=== PATIENT | female | born 1945 | race Caucasian/White ===

== ENCOUNTER 2022-07-25 15:43 | Emergency (ER) | payer MEDICARE, BC, SELFPAY ==
[2022-07-25 15:46] VITALS: BP 173/75; PULSE 112; RESP 17; TEMP 36.4; O2SAT 91; BMI 25.0
--- NOTE | 2022-07-25 15:56 | ED_ITS ---
HPI - Animal Bite General: Chief Complaint: Animal Bite Stated Complaint: dog bite Time Seen by Provider: 07/25/22 15:54 Source: patient Mode of arrival: ambulatory Limitations: no limitations History of Present Illness: Patient is a 77-year-old female presents to ED today for evaluation and treatment of a dog bite to her right index finger. She states she was bitten earlier today by her own dog who has been sickly recently. States she scared the dog and it bit her. She states dog is not up-to-date on his rabies shots. She states over the past 2 weeks or so he has been very lethargic, has swollen glands to his neck, and overall just is not acting appropriately. He is an indoor/outdoor dog. Tetanus is not up-to-date. complaint: animal bite Onset (ago): hour(s) Animal: dog Description of animal: appeared ill Mechanism: bite Associated symptoms: Reports no associated symptoms; Deny chills, fever(s) or headache(s) Related Data: Patient tetanus UTD: No Review of Systems Const: Denies: fever(s), chills, body aches, fatigue or malaise Card: Denies: chest pain Resp: Denies: dyspnea GI: Denies: abdominal pain, nausea, vomiting or diarrhea Musc: Reports: extremity pain (small dog bite to finger) Neuro: Denies: headache(s), numbness in extremities, weakness in extremities or sensory changes [facility] ED PFSH: Medical History Fever blister Tick bite of abdominal wall Family History Grandmother Stroke Mother Stroke Father Cancer Grandfather CAD (coronary artery disease) Brother Cancer Other Diabetes Lupus Social History Smoking and tobacco status: current every day smoker cigarettes Packs smoked per day: 0.75 Second hand smoke exposure: Yes Alcohol intake: never Substance/Drug Use: never Marital status: Number of children: 1 Number of grandchildren: 5 Current occupational status: retired Physical Exam Const: COMMON NORMALS: no acute distress, average body habitus, patient oriented x3, no limitations, alert and well nourished Resp: COMMON NORMALS: normal respiratory effort and clear to auscultation bilaterally AUSCULTATION: clear to auscultation bilaterally Cardio: COMMON NORMALS: regular rate and regular rhythm RATE: regular rate RHYTHM: regular rhythm Extremity: COMMON NORMALS: full ROM and capillary refill normal GENERAL: Yes normal exam except as noted RIGHT UPPER EXTREMITY: Yes hand & digits (small superficial dog bite to R mid index finger; no swelling/redness) Right hand and digits: Yes ROM exam (normal), Yes neurovascular exam (normal) and Yes tendon exam (normal) Neuro: COMMON NORMALS: patient oriented x3, moves all extremities, no focal motor deficits and no sensory deficits noted SENSORIUM/ORIENTATION: Yes alert Course Vital Signs: Vital signs: Vital Signs Temperature 97.5 F L 07/25/22 15:46 Pulse Rate 100 07/25/22 17:03 Respiratory Rate 16 07/25/22 17:03 Blood Pressure 169/81 07/25/22 16:05 Pulse Oximetry 99 07/25/22 17:03 Oxygen Delivery Me thod Room Air 07/25/22 16:05 MDM - Animal Bite Medical Decision Making We will start rabies PEP as dog appeared ill and is not up-to-date on rabies shots. Tetanus was updated. She will be placed on oral antibiotics. Return to ED precautions given. Discharge Plan Discharge Patient Disposition: Home Clinical Impression: Dog bite Qualifiers: Encounter type: initial encounter Qualified Code(s): W54.0XXA - Bitten by dog, initial encounter Condition: Stable Prescriptions: New amoxicillin-pot clavulanate 875-125 mg tablet 1 tab PO BID Qty: 14 0RF Discontinued amoxicillin 875 mg tablet 875 mg PO BID doxycycline hyclate 100 mg tablet 100 mg PO BID Qty: 14 0RF No Action multivitamin Tablet 1 tab PO DAILY Discharge Orders: Discharge ED (Routine); Ordered 07/25/22 Ordered By: Shirley Kraus Referrals: Yobany Cooper MD [Primary Care Provider] - Patient Instructions: Rabies Vaccine (By injection), Rabies Immune Globulin (By injection), Animal Bite (ED) Activity Restrictions/Additional Instructions: Start your antibiotics immediately. Monitor wound for signs of infection such as redness, swelling, purulent drainage, streaking up your hand or arm, or fevers. Please seek medical reevaluation of these occur. You should have been given a schedule for the remainder of your rabies immunizations. Recommend taking your dog to the vet for further evaluation/testing/treatment. Coding Level of Care Code ED Systems Security Consultant for Roosevelt Mcgarry
[2022-07-25 16:05] VITALS: BP 169/81; PULSE 110; RESP 16; O2SAT 98
[2022-07-25] MEDS: tetanus-dipt-pertussis 0.5 mL SDV IM (16:51)
[2022-07-25] MEDS: rabies vaccine 2.5 unit SDV IM (16:53)
[2022-07-25 17:03] VITALS: PULSE 100; RESP 16; O2SAT 99
== END 2022-07-25 17:04 | disposition home or self-care (01) ==
PROVIDERS: Emergency Provider Physician Assistant; PCP Family Medicine Adult Medicine
DX: S61.250A Open bite of right index finger without damage to nail, initial encounter (principal); W54.0XXA Bitten by dog, initial encounter; Z29.14 Encounter for prophylactic rabies immune globulin; Z20.3 Contact with and (suspected) exposure to rabies; Z23 Encounter for immunization; F17.210 Nicotine dependence, cigarettes, uncomplicated
CPT/HCPCS: 90375; 90471; 90675; 90715; 99283

== ENCOUNTER 2022-07-28 09:41 | Emergency (ER) | payer MEDICARE, BC, SELFPAY ==
[2022-07-28 10:31] VITALS: BP 123/89; PULSE 87; RESP 16; TEMP 36.6; O2SAT 93; BMI 25.0
[2022-07-28] MEDS: rabies vaccine 2.5 unit SDV IM (10:52)
--- NOTE | 2022-07-28 10:57 | W.ED.ANIMALB ---
HPI - Animal Bite General: Chief Complaint: Animal Bite Stated Complaint: third day needs rabies shot Time Seen by Provider: 07/28/22 10:35 History of Present Illness: Patient is a 77-year-old female comes to the ED to get second rabies shot. Patient was seen here back on July 25 initially for dog bite on right hand and she received the rabies immunoglobulin and rabies vaccine shot then. She denies any complications from previous rabies Ig and vaccine dose. She states that her dog bite on right hand is healing well. She has no other complaints Associated symptoms: Deny chills, fever(s) or headache(s) Review of Systems Const: Denies: fever(s), chills or fatigue Eyes: Denies: change in vision or eye discomfort ENMT: Denies: throat pain, odynophagia, nasal discharge or nasal congestion Card: Denies: chest pain, palpitations, edema, swelling of feet/ankles, dyspnea on exertion or orthopnea Resp: Denies: dyspnea, productive cough or non-productive cough GI: Denies: abdominal pain, nausea, vomiting, diarrhea, constipation or hematochezia : Denies: flank pain, dysuria or hematuria Musc: Denies: neck pain, back pain or extremity swelling Skin/Breast: Reports: new lesions (Dog bite on right hand healing well); Denies: rash Neuro: Denies: headache(s), numbness in extremities or weakness in extremities PFSH ED PFSH: Medical History Fever blister Tick bite of abdominal wall Family History Grandmother Stroke Mother Stroke Father Cancer Grandfather CAD (coronary artery disease) Brother Cancer Other Diabetes Lupus Social History Smoking and tobacco status: current every day smoker cigarettes Packs smoked per day: 0.75 Second hand smoke exposure: Yes Alcohol intake: never Substance/Drug Use: never Marital status: Number of children: 1 Number of grandchildren: 5 Current occupational status: retired Physical Exam Const: COMMON NORMALS: patient oriented x3 HENMT: COMMON NORMALS: normocephalic HEAD & SCALP: normocephalic MOUTH: Normal oral and palatal mucosa present THROAT: posterior oropharynx normal and uvula midline Neck/C-Spine: COMMON NORMALS: supple GENERAL: Yes normal visual inspection Resp: COMMON NORMALS: normal respiratory effort, No retractions, No use of accessory muscles and clear to auscultation bilaterally AUSCULTATION: clear to auscultation bilaterally Cardio: COMMON NORMALS: regular rate, regular rhythm, S1 normal heart sound present, S2 normal heart sound present, No gallops present (Cardio), No clicks present (Cardio), No murmurs present (Cardio) and Peripheral pulses 2+ throughout RATE: regular rate RHYTHM: regular rhythm HEART SOUNDS: S1 normal heart sound present and S2 normal heart sound present PERIPHERAL PULSES: Peripheral pulses 2+ throughout GI: COMMON NORMALS: Normal to inspection, nondistended, normoactive bowel sounds present, Soft to palpation, non-tender and no masses PALPATION: Yes Soft to palpation : COMMON NORMALS: Yes no CVA tenderness BLADDER/KIDNEY EXAM: Yes no CVA tenderness Back/Pelvis: COMMON NORMALS: no CVA tenderness Extremity: COMMON NORMALS: normal to inspection NARRATIVE EXTREMITY EXAM: Dog bite on right hand is healing well and no signs of any infection noted. Neuro: COMMON NORMALS: patient oriented x3 GAIT: Yes Normal gait present Skin: GENERAL SKIN EXAM: dry skin Course Vital Signs: Vital signs: Vital Signs Temperature 97.9 F 07/28/22 10:31 Pulse Rate 87 07/28/22 10:31 Respiratory Rate 16 07/28/22 10:31 Blood Pressure 123/89 07/28/22 10:31 Pulse Oximetry 93 07/28/22 10:31 Oxygen Delivery Me thod Room Air 07/28/22 10:31 MDM - Animal Bite Medical Decision Making Patient is a 77-year-old female comes to the ED to get second rabies shot. Patient was seen here back on July 25 initially for dog bite on right hand and she received the rabies immunoglobulin and rabies vaccine shot then. She denies any complications from previous rabies Ig and vaccine dose. She states that her dog bite on right hand is healing well. She has no other complaints. Dog bite on right hand is healing well and no signs of any infection noted. Patient was given second rabies shot here in the ED and was stable for discharge home. Told to follow-up to get her next rabies shot on August 01. Patient understood agree with plan. Discharge Plan Discharge Patient Disposition: Home Clinical Impression: Encounter for repeat administration of rabies vaccination Condition: Stable Prescriptions: No Action multivitamin Tablet 1 tab PO DAILY amoxicillin-pot clavulanate 875-125 mg tablet 1 tab PO BID Qty: 14 0RF Discharge Orders: Discharge ED (Routine); Ordered 07/28/22 Ordered By: Joe Vicente Referrals: Yobany Cooper MD [Primary Care Provider] - Discharge Diet: Regular Discharge Activity: Increase activity as tolerated Patient Instructions: Rabies Vaccine (By injection) Activity Restrictions/Additional Instructions: Return to the ED or urgent care to receive your next rabies shot on August 01. Continue taking all medications as previously prescribed. Return to the ER or your medical provider if condition worsens. Please read and understand discharge instructions. Thank you for choosing [facility] for your healthcare needs today. Please realize this is an emergency room and that we are providing you with a medical screening exam and this may not be complete and all inclusive of all the testing and or work up that you may need to determine your ailment or severity of your illness. It is very important that you follow up as instructed or that you return to the Emergency Department should you have concerns or if your condition changes or worsens in any way. Coding Level of Care Code ED Wax Pattern Assembler for Roosevelt Mcgarry
== END 2022-07-28 11:06 | disposition home or self-care (01) ==
PROVIDERS: Emergency Provider Physician Assistant; PCP Family Medicine Adult Medicine
DX: Z29.14 Encounter for prophylactic rabies immune globulin (principal); Z20.3 Contact with and (suspected) exposure to rabies; Z23 Encounter for immunization; F17.210 Nicotine dependence, cigarettes, uncomplicated
CPT/HCPCS: 90471; 90675; 99281; 99283

== ENCOUNTER 2022-08-01 09:01 | Emergency (ER) | payer MEDICARE, BC, SELFPAY ==
[2022-08-01 09:21] VITALS: BP 133/74; PULSE 91; TEMP 36.9; O2SAT 94; BMI 25.0
--- NOTE | 2022-08-01 09:25 | ED_ITS ---
HPI - General Adult General: Chief complaint: General Medical Stated complaint: Rabies, second shot Time Seen by Provider: 08/01/22 09:18 Source: patient Mode of arrival: ambulatory Limitations: no limitations History of Present Illness: 77-year-old female is here for her day 7 rabies vaccine. She is bit by dog a week ago she has no other complaints at this time denies any pain denies any worsening proving factors. Associated symptoms: Deny chest pain, headache(s) or rash Review of Systems Const: Denies: fever(s) Card: Denies: chest pain GI: Denies: abdominal pain Musc: Denies: back pain Skin/Breast: Denies: rash Neuro: Denies: headache(s) PFSH ED PFSH: Medical History Fever blister Tick bite of abdominal wall Family History Grandmother Stroke Mother Stroke Father Cancer Grandfather CAD (coronary artery disease) Brother Cancer Other Diabetes Lupus Social History Smoking and tobacco status: current every day smoker cigarettes Packs smoked per day: 0.75 Second hand smoke exposure: Yes Alcohol intake: never Substance/Drug Use: never Marital status: Number of children: 1 Number of grandchildren: 5 Current occupational status: retired Physical Exam Const: COMMON NORMALS: no acute distress and patient oriented x3 HENMT: COMMON NORMALS: atraumatic HEAD & SCALP: atraumatic Chest: COMMONS NORMALS: normal inspection of the chest Resp: COMMON NORMALS: normal respiratory effort Extremity: COMMON NORMALS: normal to inspection Neuro: COMMON NORMALS: patient oriented x3 Psych: COMMON NORMALS: mental status grossly normal Skin: COMMON NORMALS: no rashes or lesions noted GENERAL SKIN EXAM: no rashes or lesions noted Course Vital Signs: Vital signs: Vital Signs Temperature 98.4 F 08/01/22 09:21 Pulse Rate 91 08/01/22 09:21 Blood Pressure 133/74 08/01/22 09:21 Pulse Oximetry 94 08/01/22 09:21 Oxygen Delivery Me thod Room Air 08/01/22 09:21 [facility] - General Adult Medical Decision Making Patient presents here for day 7 rabies vaccine after being bit by dog she has no other medical complaints at this time we will give her rabies shot she is stable for discharge return in 1 week for the last shot. Discharge Plan Discharge Patient Disposition: Home Clinical Impression: Encounter for repeat administration of rabies vaccination Condition: Stable Prescriptions: No Action multivitamin Tablet 1 tab PO DAILY amoxicillin-pot clavulanate 875-125 mg tablet 1 tab PO BID Qty: 14 0RF Discharge Orders: Discharge ED (Routine); Ordered 08/01/22 Ordered By: Tabatha Griggs Referrals: Yobany Cooper MD [Primary Care Provider] - Discharge Diet: Advance as tolerated Discharge Activity: Resume usual activity Patient Instructions: Rabies Vaccine (By injection) Coding Level of Care Code ED Tester Rocket Engine for Roosevelt Mcgarry
[2022-08-01] MEDS: rabies vaccine 2.5 unit SDV IM (09:33)
== END 2022-08-01 09:34 | disposition home or self-care (01) ==
PROVIDERS: Emergency Provider Emergency Medicine; PCP Family Medicine Adult Medicine
DX: Z29.14 Encounter for prophylactic rabies immune globulin (principal); Z20.3 Contact with and (suspected) exposure to rabies; Z23 Encounter for immunization; F17.210 Nicotine dependence, cigarettes, uncomplicated
CPT/HCPCS: 90471; 90675; 99283

== ENCOUNTER 2022-08-12 12:36 | Emergency (ER) | payer MEDICARE, BC, SELFPAY ==
[2022-08-12 13:02] VITALS: BP 159/82; PULSE 100; RESP 14; TEMP 36.7; O2SAT 93
--- NOTE | 2022-08-12 13:08 | W.ED.RECABL ---
HPI - Recheck/Abnormal Lab/Rx General: Chief Complaint: Recheck/Abnormal Lab/Rx Stated Complaint: last rabie shot Time Seen by Provider: 08/12/22 13:08 Source: patient Mode of arrival: ambulatory Limitations: no limitations History of Present Illness: Patient is a 77-year-old female presents to ED today requesting her fourth and final rabies immunization. Patient has no complaints thus far. She states the bite to her hand has completely healed. She is not experiencing any adverse reactions from her previous immunizations. complaint: wound re-check and other (rabies shot) Initial visit (ago): day(s) Initial visit for: animal bite Returns today for: rabies shot Symptoms since prior visit: no new symptoms Associated symptoms: none Review of Systems General: Reports: 10 or more systems reviewed and unremarkable except in HPI and below PFSH ED PFSH: Medical History Fever blister Tick bite of abdominal wall Family History Grandmother Stroke Mother Stroke Father Cancer Grandfather CAD (coronary artery disease) Brother Cancer Other Diabetes Lupus Social History Smoking and tobacco status: current every day smoker cigarettes Packs smoked per day: 0.75 Second hand smoke exposure: Yes Alcohol intake: never Substance/Drug Use: never Marital status: Number of children: 1 Number of grandchildren: 5 Current occupational status: retired Physical Exam Const: COMMON NORMALS: no acute distress, average body habitus, patient oriented x3, no limitations, healthy appearing, alert and well nourished Resp: COMMON NORMALS: normal respiratory effort and clear to auscultation bilaterally AUSCULTATION: clear to auscultation bilaterally Cardio: COMMON NORMALS: regular rate and regular rhythm RATE: regular rate RHYTHM: regular rhythm Extremity: COMMON NORMALS: normal to inspection GENERAL: Yes normal exam except as noted Neuro: EULALIO COMA SCALE: document GCS findings [place] coma scale eye opening: Spontaneous Eulalio coma scale verbal response: Orientated [place] coma scale motor response: [place]bey commands [place] coma scale total score: 15 COMMON NORMALS: patient oriented x3 SENSORIUM/ORIENTATION: Yes alert Course Vital Signs: Vital signs: Vital Signs Temperature 98.1 F 08/12/22 13:02 Pulse Rate 100 08/12/22 13:02 Respiratory Rate 14 08/12/22 13:02 Blood Pressure 159/82 08/12/22 13:02 Pulse Oximetry 93 08/12/22 13:02 Oxygen Delivery Me thod Room Air 08/12/22 13:02 MDM - Recheck/Abnormal Lab/Rx Medical Decision Making Patient was administered her last rabies immunization for series completion. Discharge Plan Discharge Patient Disposition: Home Clinical Impression: Encounter for repeat administration of rabies vaccination Condition: Stable Prescriptions: No Action multivitamin Tablet 1 tab PO DAILY amoxicillin-pot clavulanate 875-125 mg tablet 1 tab PO BID Qty: 14 0RF Discharge Orders: Discharge ED (Routine); Ordered 08/12/22 Ordered By: Shirley Kraus Referrals: Yobany Cooper MD [Primary Care Provider] - Patient Instructions: Rabies Vaccine (By injection) Coding Level of Care Code ED Snuff Grinder for Roosevelt Mcgarry
[2022-08-12] MEDS: rabies vaccine 2.5 unit SDV IM (13:19)
== END 2022-08-12 13:35 | disposition home or self-care (01) ==
PROVIDERS: Emergency Provider Physician Assistant; PCP Family Medicine Adult Medicine
DX: Z29.14 Encounter for prophylactic rabies immune globulin (principal); Z20.3 Contact with and (suspected) exposure to rabies; Z23 Encounter for immunization; F17.210 Nicotine dependence, cigarettes, uncomplicated
CPT/HCPCS: 90471; 90675; 99284